=== PATIENT | female | born 1985 | race Caucasian/White ===

== ENCOUNTER 2024-08-13 13:28 | Emergency (ER) | payer OTHER, SELFPAY ==
[2024-08-13 13:44] VITALS: BP 103/59; PULSE 66; RESP 18; TEMP 36.3; O2SAT 100
--- NOTE | 2024-08-13 13:54 | ED.URI ---
HPI - URI/Sore Throat General Chief Complaint: Upper Respiratory Infection Stated Complaint: sinus infection Time Seen by Provider: 08/13/24 13:54 Source: patient Mode of arrival: ambulatory Limitations: no limitations History of Present Illness HPI Narrative: 38-year-old female presents with complaint of sinus congestion and headaches, nasal congestion for 2 weeks. Patient reports influenza 2 weeks ago. Cough improving. Worsening of sinus symptoms, drainage changed from yellow to green. Afebrile. All systems reviewed and negative except as noted above. Related Data Allergies Allergy/AdvReac Type Severity Reaction Status Date / Time No Known Allergies Allergy Verified 08/13/24 13:45 Review of Systems Review of Systems: CONSTITUTIONAL: Denies fever, chills, or sweats. Reports fatigue. EYES: Denies visual changes, redness, or discharge. ENT: Reports rhinorrhea, congestion, sinus congestion, sinus pressure. Denies sore throat, or otalgia. CARDIOVASCULAR: Denies chest pain, palpitations, or edema. RESPIRATORY: Denies cough or dyspnea. GASTROINTESTINAL: Denies abdominal pain, nausea, vomiting, or diarrhea. GENITOURINARY: Denies dysuria or hematuria. SKIN: Denies rash or itching. MUSCULOSKELETAL: Denies back pain, joint pain, or myalgia. NEUROLOGIC: Denies headache, numbness, or weakness. PSYCHIATRIC: Denies anxiety or depression. All other systems reviewed are negative, except as documented in HPI. PMFSH Comments At time of signature, agree with nursing past medical, surgical, social and family history. There is no relevant family history pertinent to the presenting complaint. Exam Narrative: GENERAL: This is a well-nourished, well-developed patient, in no apparent distress. HEAD: normocephalic, atraumatic. EYES: PERRL. Sclera clear/white. Vision is grossly intact. EARS: External ears normal, auditory canals clear and without drainage, TMs normal without perforation. Hearing grossly intact. NOSE: External nose normal with moderate congestion, purulent nasal drainage, erythema to bilateral nares. Right-sided frontal and maxillary sinus tenderness on palpation. THROAT: Mucous membranes moist, Erythematous with postnasal drainage. No swelling or exudates. NECK: Neck supple, non-tender without lymphadenopathy, masses or thyromegaly. CARDIOVASCULAR: Regular rate and rhythm without murmurs, gallops, or rubs. RESPIRATORY: Clear to auscultation. Breath sounds equal bilaterally. No wheezes, rales, or rhonchi. SKIN: warm, Dry, intact with no suspicious lesions or rash, good texture and turgor. NEURO: awake, alert, and oriented to person, place and time. There were no obvious focal neurologic abnormalities. EXTREMITIES: No joint tenderness, effusion, or edema noted. Course Course Level of Care: Express Care Visit Vital Signs Vital signs: Vital Signs Temperature 36.3 C L 08/13/24 13:44 Pulse Rate 66 08/13/24 13:44 Respiratory Rate 18 08/13/24 13:44 Blood Pressure 103/59 L 08/13/24 13:44 Pulse Oximetry 100 08/13/24 13:44 Oxygen Delivery Room Air 08/13/24 13:44 Temperature 36.3 C L 08/13/24 13:44 Pulse Rate 66 08/13/24 13:44 Respiratory Rate 18 08/13/24 13:44 Blood Pressure 103/59 L 08/13/24 13:44 Pulse Oximetry 100 08/13/24 13:44 Oxygen Delivery Room Air 08/13/24 13:44 Reviewed MDM - URI/Sore Throat MDM Narrative Medical decision making narrative: will treat patient for bacterial sinusitis due to duration of symptoms and exam findings. Patient agrees with plan of care. Patient well-appearing, nontoxic. Patient is aware of diagnosis, understands and agrees to treatment plan. Anticipatory guidance given. Patient agrees to follow-up as directed and is aware of reasons to seek care at the emergency department. Portions of this record may have been created with voice recognition software Differential Diagnosis Differential diagnosis: Likely upper respiratory infection, sinusitis, viral infection and influenza Discharge Plan Discharge Clinical Impression: Acute bacterial sinusitis Patient Disposition: Home, Self-Care Condition: Stable Instructions: Antibiotic Form, Sinusitis (ED) Additional Instructions: take medications as prescribed. Continue taking a [id number] antihistamine such as Claritin or Zyrtec daily. Drink at least 64 oz of water a day. Place cool mist humidifier in bedroom where you sleep. Follow-up with your primary care physician if symptoms are not improving. Patient Language: [place] Prescriptions: New methylprednisolone [Medrol (Rodríguze)] 4 mg tablets,dose pack See Rx Instructions PO .COMPLEX Qty: 21 0RF Rx Instructions: orally per package directions amoxicillin-pot clavulanate 875-125 mg tablet 1 tablet PO Q12H 7 Days Qty: 14 0RF Follow-up/Referrals: PHYSICIAN,JUVENILE DETENTION OFFICER [Primary Care Provider] - Time of Disposition: 14:01
== END 2024-08-13 14:06 | disposition home or self-care (01) ==
PROVIDERS: Emergency Provider Nurse Practitioner Family; Referring Provider Family Medicine
DX: J01.90 Acute sinusitis, unspecified (principal)
CPT/HCPCS: 99203; G0463